=== PATIENT | female | born 1985 | race Caucasian/White ===

== ENCOUNTER → 2017-07-05 | Outpatient (REF) | payer OTHER | LOC: M LAB REF 13:26 | DX: Z34.83 Encounter for supervision of other normal pregnancy, third trimester (principal); Z3A.00 Weeks of gestation of pregnancy not specified ==

== ENCOUNTER 2017-07-13 09:18 | Inpatient (IN) | payer MEDICAID, OTHER ==
[2017-07-13] MEDS: PRENATAL VITAMINS CHEWABLE TABLET PO (09:00)
[2017-07-13] MEDS: DOCUSATE SODIUM 100 MG CAP PO ×2 (09:00→20:27)
[2017-07-13] MEDS: LACTATED RINGER'S 1000 ML IV (10:15)
[2017-07-13 10:31] LABS: HEMATOCRIT 31.1 % (36.0-47.0); HEMOGLOBIN 10.4 g/dl (12.0-15.5); MEAN CORPUSCULAR HGB CONC 33.4 g/dl (32.0-36.5); MEAN CORPUSCULAR VOLUME 92.6 fl (80.0-96.0); PLATELET COUNT, AUTOMATED 164 10^3/uL (150-450); RED BLOOD COUNT 3.36 10^6/uL (4.00-5.40); RED CELL DISTRIBUTION WIDTH 14.6 % (11.5-14.5)
[2017-07-13] MEDS ORDERED: ceFAZolin 2 GM/D5W 50 ML IV BAG (J0690 PER 500MG) As Ordered (12:31)
[2017-07-13] MEDS ORDERED: BICITRA 30ML SOLN UDC As Ordered (12:31)
[2017-07-13] MEDS: LR 1,000 ML IV ×3 (12:44→20:19)
[2017-07-13] MEDS ORDERED: BICITRA 30ML SOLN UDC PO (12:45)
[2017-07-13] MEDS ORDERED: MORPHINE PRES-FREE INJ 10 MG/10 ML VIAL (J2274) As Ordered (12:45)
[2017-07-13] MEDS ORDERED: ONDANSETRON 4MG/2ML VIAL (J2405) IV ×2 (12:45→13:03)
[2017-07-13] MEDS ORDERED: MOM 30ML SUSPENSION UDC PO (12:45)
[2017-07-13] MEDS ORDERED: METHYLERGONOVINE MALEATE 0.2 MG TAB PO (12:45)
[2017-07-13] MEDS ORDERED: OXYTOCIN INJ 10 UNITS/ML VIAL (J2590) As Ordered ×6 (12:46→13:38)
[2017-07-13] MEDS ORDERED: NALOXONE INJ 0.4 MG/1 ML VIAL (J2310) IV ×2 (13:03)
[2017-07-13] MEDS ORDERED: ePHEDrine SULFATE 25 MG/5 ML(5MG/ML) SYRINGE As Ordered (13:07)
[2017-07-13] MEDS ORDERED: PHENYLephrine HCL 500 MCG/5 ML (100MCG/ML) SYRINGE (J2370) As Ordered (13:07)
[2017-07-13] MEDS ORDERED: ONDANSETRON 4MG/2ML VIAL (J2405) As Ordered (13:08)
[2017-07-13 13:34] LABS: CORD GAS ABE V -1.1; CORD GAS O2 SAT V 52.4 %; CORD GAS PCO2 V 46.9 mmHg; CORD GAS PH V 7.345 UNITS; CORD GAS PO2 V 21.6 mmHg; CORD GAS SBC V 22.4 MEQ/L; CORD GAS TCO2 V 26.5 MEQ/L
[2017-07-13 13:36] LABS: CORD GAS ABE A -1.9; CORD GAS HCO3 A 26.2 MEQ/L; CORD GAS PCO2 A 58.1 mmHg; CORD GAS PH A 7.272 UNITS; CORD GAS PO2 A 14.8 mmHg; CORD GAS SBC A 21.1 MEQ/L
[2017-07-13] MEDS ORDERED: NALBUPHINE HCL 10 MG/ML AMP (J2300) IV (14:15)
[2017-07-13] MEDS ORDERED: fentaNYL 100 MCG/2 ML INJECTION (J3010) IV (14:15)
[2017-07-13] MEDS: METOCLOPRAMIDE INJ 10MG/2ML VIAL (J2765) IV (16:23)
[2017-07-13] MEDS: RHOGAM 300 MCG (1500 IU) INJ (J2790) IM (16:35)
[2017-07-13] MEDS: MEASLES,MUMPS,RUBELLA VACCINE INJ (MMR-II) (90707) SC (16:35)
[2017-07-13] MEDS: NALBUPHINE HCL 10 MG/ML AMP (J2300) IV (17:01)
[2017-07-13] MEDS: IBUPROFEN 800 MG TAB PO (21:14)
[2017-07-14] MEDS: NORCO, ANEXSIA 5/325MG TABLET (HYDROcodone/ACETAMINOPHEN) PO ×5 (00:37→21:23)
[2017-07-14] MEDS: IBUPROFEN 800 MG TAB PO ×3 (04:05→21:22)
[2017-07-14] MEDS: LR 1,000 ML IV (04:44)
[2017-07-14 07:42] LABS: HEMATOCRIT 27.1 % (36.0-47.0); MEAN CORPUSCULAR HGB CONC 33.2 g/dl (32.0-36.5); MEAN CORPUSCULAR VOLUME 93.4 fl (80.0-96.0); PLATELET COUNT, AUTOMATED 142 10^3/uL (150-450); RED CELL DISTRIBUTION WIDTH 14.6 % (11.5-14.5); WHITE BLOOD COUNT 7.3 10^3/uL (4.0-10.0)
[2017-07-14] MEDS: PRENATAL VITAMINS CHEWABLE TABLET PO (08:07)
[2017-07-14] MEDS: DOCUSATE SODIUM 100 MG CAP PO ×2 (08:08→21:23)
[2017-07-15] MEDS: NORCO, ANEXSIA 5/325MG TABLET (HYDROcodone/ACETAMINOPHEN) PO ×5 (04:21→21:35)
[2017-07-15] MEDS: IBUPROFEN 800 MG TAB PO ×3 (05:29→20:49)
[2017-07-15] MEDS: PRENATAL VITAMINS CHEWABLE TABLET PO (08:52)
[2017-07-15] MEDS: DOCUSATE SODIUM 100 MG CAP PO ×2 (08:52→20:49)
[2017-07-16] MEDS: IBUPROFEN 800 MG TAB PO (04:38)
[2017-07-16] MEDS: NORCO, ANEXSIA 5/325MG TABLET (HYDROcodone/ACETAMINOPHEN) PO ×2 (04:39→09:06)
[2017-07-16] MEDS: PRENATAL VITAMINS CHEWABLE TABLET PO (09:05)
[2017-07-16] MEDS: DOCUSATE SODIUM 100 MG CAP PO (09:05)
== END 2017-07-16 09:00 | disposition home or self-care (01) | DRG 540 ==
LOC: M LDO 09:18 → M OBS 07-15 17:30 → M LDI 11:37 → M OBS 16:04
PROVIDERS: Obstetrics & Gynecology
PROC: 10D00Z1 Extraction of Products of Conception, Low, Open Approach (ICD-10-PCS; principal; 2017-07-13 12:55)
DX: O60.14X0 Preterm labor third trimester with preterm delivery third trimester, not applicable or unspecified (principal); O40.3XX0 Polyhydramnios, third trimester, not applicable or unspecified; O34.211 Maternal care for low transverse scar from previous cesarean delivery; Z37.0 Single live birth; Z3A.36 36 weeks gestation of pregnancy